=== PATIENT | female | born 1955 | race Caucasian/White ===

== ENCOUNTER 2019-05-30 14:03 | Emergency (ER) | payer OTHER ==
[~2019-05-30] VITALS: Ht 167.6 cm; Wt 53.5 kg
[2019-05-30 14:13] VITALS: BP 132/52
--- NOTE | 2019-05-30 14:52 | NUR ---
CAR [employer]ORER: PT SIGNED AMA FORM
== END 2019-05-30 16:19 ==
LOC: ED 16:13
DX: M25.461 Effusion, right knee (principal); Z53.21 Procedure and treatment not carried out due to patient leaving prior to being seen by health care provider